=== PATIENT | female | born 1975 | race Caucasian/White ===

== ENCOUNTER 2020-11-24 20:07 | Emergency (ER) | payer OTHER, MEDICARE, MEDICAID, SELFPAY ==
[2020-11-24 20:43] VITALS: BP 119/80; PULSE 88; RESP 17; TEMP 36.4; O2SAT 97; BMI 28.0
--- NOTE | 2020-11-24 21:30 | XR_ITS ---
EXAMINATION: XR LUMBOSACRAL SPINE CLINICAL INFORMATION: History of spinal surgery. Lumbar pain. COMPARISON: None TECHNIQUE: Three views of the lumbosacral spine. FINDINGS: The vertebral bodies and posterior elements are normal. The disc spaces are preserved and the vertebral alignment is normal. The paraspinal soft tissues are normal. XR/XR lumbar spine 2-3V IMPRESSION: Unremarkable examination.
[2020-11-24] MEDS: Acetaminophen 325 MG TABLET 975 MG PO (21:45)
[2020-11-24] MEDS: oxyCODONE HCl Immed Release 5 MG TABLET 2.5 MG PO (21:46)
[2020-11-24] MEDS: Cyclobenzaprine HCl 5 MG TABLET PO (21:46)
[2020-11-24] MEDS: Ketorolac Tromethamine 30 MG/ML VIAL IM (21:47)
[2020-11-24 21:54] VITALS: BP 110/72; PULSE 65; RESP 16; O2SAT 99
--- NOTE | 2020-11-24 22:01 | ED.BACK ---
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 She had immediate pain more so in the right that radiates down to her right buttock. It is painful to walk. She denies numbness, tingling, urinary or fecal incontinence. She denies urinary symptoms. She took ibuprofen at noon without improvement. MD elicited complaint: back pain Pertinent past history: prior back pain Onset (ago): hour(s) (11) Timing: constant Severity: severe Similar Symptoms Previously: Yes Quality: sharp and aching Location: lumbar spine Exacerbating factors: movement and walking Relieving factors: immobilization Context: bending Associated symptoms: denies other symptoms Treatments prior to arrival: NSAIDS Work related injury: No Related Data Previous Rx's Medication Instructions Recorded cyclobenzaprine 5 mg PO TID PRN #14 tab 11/24/20 ibuprofen 600 mg PO Q8H PRN #20 tab 11/24/20 lidocaine [Lidoderm] 1 patch TOPICAL DAILY #15 ea 11/24/20 oxycodone 2.5 mg PO Q8H PRN #5 tab 11/24/20 Allergies Allergy/AdvReac Type Severity Reaction Status Date / Time Iodinated Contrast Media Allergy Severe ANAPHYLAXIS Verified 11/24/20 20:42 [IV CONTRAST] metoclopramide [From REGLAN] Allergy Mild RASH Verified 11/24/20 20:42 Review of Systems Review of Systems: Constitutional: No Fever, No Chills Cardiovascular: No Chest Pain, No SOB Respiratory: No Cough, No Sputum Gastrointestinal: No Nausea, No Vomiting, No Diarrhea, No abdominal Pain Genitourinary: No Dysuria, No Urinary Frequency, No Hematuria Musculoskeletal: + joint pain, + Myalgias Skin: No Skin Lesions, No rash Neuro: No Weakness, No Numbness Psych: No Anxiety/Panic, No Depression Heme/Lymph: No Bruising, No Lymphadenopathy PMFSH Past Medical History Attestation statement: The following information was validated with the patient. Social History Social History Smoking Status: Former smoker Use of substances other than those prescribed or required for medical reasons: No Advance Directives: No Advance Directives Information Provided: Yes Physical Exam Vital Signs: Vital Signs: Last Vital Signs Temp 97.5 F 11/24/20 20:43 Pulse 65 11/24/20 21:54 Resp 16 11/24/20 21:54 BP 110/72 11/24/20 21:54 Pulse Ox 99 11/24/20 21:54 Body Mass Index 28.0 Appearance: Alert. Oriented X3. No acute distress. HEENT: normal inspection CVS: Normal heart rate and rhythm. Pulses normal. Respiratory: No respiratory distress. Skin: Skin warm and dry. Normal skin color. Normal skin turgor. No rashes. Back: longitudinal well, healed surgical scar consistent with prior back surgery, right middle lumbar soft tissue tenderness and spasm, no spinal tenderness. +straight leg raise test on the right. normal DTR's. Extremities: atraumatic, no edema Neuro: Oriented X 3. No motor deficit. No sensory deficit. Walks with slow but steady gait. Slow to sit up due to pain Course Course Course Narrative: 45 y/o female with LBP that occurred while bending down today. No red flag symptoms of LBP. Appears uncomfortable on exam. Will get XR given prior surgery. She report she is very sensitive to mediations and does not like to take narcotics, willing to take low dose oxycodone now. Will also give Toradol and reassess. Reevaluation(s) Reevaluation #1: XR lumbar spine is unremarkable. Pain is improved with medications. She is stable for discharge with treatment for acute on chronic with NSAID, muscle relaxer and low dose oxycodone (short course). She will follow up with her doctor tomorrow. Discharge Plan Discharge Clinical Impression: Strain of lumbar region Qualifiers: Encounter type: initial encounter Qualified Code(s): S39.012A - Strain of muscle, fascia and tendon of lower back, initial encounter Patient Disposition: Home, Self-Care Instructions: Low Back Strain (ED), Acute Low Back Pain (ED), Lower Back Exercises (ED) Additional Instructions: Your x-ray today was normal. No bending, lifting or twisting. Use ice several times per day for 20 minutes at a time for the next 48 hours and then change to heat. Take medications as prescribed to help with pain and discomfort. Follow up with your Primary Care Doctor this week. If your pain worsens, if you develop new numbness, tingling, weakness, loss of function or incontinence call 911 or come back to the ER right away for evaluation. Prescriptions: New lidocaine [Lidoderm] 5 % adhesive patch,medicated 1 patch topical DAILY Qty: 15 RF: 0 ibuprofen 600 mg tablet 600 mg PO Q8H PRN (Reason: pain) Qty: 20 RF: 0 cyclobenzaprine 5 mg tablet 5 mg PO TID PRN (Reason: muscle spasm) Qty: 14 RF: 0 oxycodone 5 mg tablet 2.5 mg PO Q8H PRN (Reason: pain) Qty: 5 RF: 0
== END 2020-11-24 22:44 | disposition home or self-care (01) ==
PROVIDERS: Emergency Provider Emergency Medicine; PCP Internal Medicine
DX: S39.012A Strain of muscle, fascia and tendon of lower back, initial encounter (principal); X50.1XXA Overexertion from prolonged static or awkward postures, initial encounter; Y93.E2 Activity, laundry; Y92.013 Bedroom of single-family (private) house as the place of occurrence of the external cause; Y99.9 Unspecified external cause status
CPT/HCPCS: 72100; 96372; 99284; J1885

== ENCOUNTER 2021-01-24 09:07 | Emergency (ER) | payer OTHER, SELFPAY ==
[2021-01-24 09:11] VITALS: BP 126/67; PULSE 66; RESP 18; TEMP 37.1; O2SAT 99; BMI 27.7
--- NOTE | 2021-01-24 09:45 | ED_ITS ---
HPI - General Adult General Chief complaint: General Medical Stated complaint: MEDICATION Time Seen by Provider: 01/24/21 09:45 History of Present Illness HPI narrative: Patient complains of needing med refill for Paxil as she ran out and is starting to feel anxious, she takes the Paxil for PTSD and has been taking it for years She denies any acute illness she is not having chest pain she has had no fever chills she is not suicidal, she is not hearing voices and requests 1 dose here i n tomorrow Monday [facility] Related Data Previous Rx's Medication Instructions Recorded cyclobenzaprine 5 mg PO TID PRN #14 tab 11/24/20 ibuprofen 600 mg PO Q8H PRN #20 tab 11/24/20 lidocaine [Lidoderm] 1 patch TOPICAL DAILY #15 ea 11/24/20 oxycodone 2.5 mg PO Q8H PRN #5 tab 11/24/20 paroxetine HCl 20 mg PO DAILY #5 tab 01/24/21 Allergies Allergy/AdvReac Type Severity Reaction Status Date / Time Iodinated Contrast Media Allergy Severe ANAPHYLAXIS Verified 01/24/21 09:15 [IV CONTRAST] metoclopramide [From REGLAN] Allergy Mild RASH Verified 01/24/21 09:15 Review of Systems Review of Systems: Here for med refill There is no fever no chills no dizziness no weakness no chest pain no shortness of breath no abdominal pain no rash [facility] Past Medical History Attestation statement: The following information was validated with the patient. [facility] Narrative: PTSD Source: nursing notes reviewed Social History Social History Smoking Status: Former smoker Advance Directives: No Advance Directives Information Provided: No Physical Exam Vital Signs: Vital Signs: Last Vital Signs Temp 98.7 F 01/24/21 09:11 Pulse 66 01/24/21 09:11 Resp 18 01/24/21 09:11 BP 126/67 01/24/21 09:11 Pulse Ox 99 01/24/21 09:11 Body Mass Index 27.7 General appearance is no acute distress, and cooperative and O x3 The head is normocephalic atraumatic Neck is supple Respiratory no distress Abdomen is soft nontender Extremities full range of motion x4 Skin no rash Neuro gait and balance are normal and verbal interaction shows normal speech and normal comprehension, no focal motor or sensory deficits Course Course Course Narrative: Patient is given a Paxil 20 mg here and says she can easily re fill [facility] Discharge Plan Discharge Clinical Impression: Medication refill Additional Instructions: We gave you a 1 time dose of her Paxil and a script for 4 extra days in case you have any trouble getting a refill from the [facility] You can return any time for any problems or concerns Prescriptions: New paroxetine HCl 20 mg tablet 20 mg PO DAILY Qty: 5 RF: 0 No Action lidocaine [Lidoderm] 5 % adhesive patch,medicated 1 patch topical DAILY Qty: 15 RF: 0 ibuprofen 600 mg tablet 600 mg PO Q8H PRN (Reason: pain) Qty: 20 RF: 0 cyclobenzaprine 5 mg tablet 5 mg PO TID PRN (Reason: muscle spasm) Qty: 14 RF: 0 oxycodone 5 mg tablet 2.5 mg PO Q8H PRN (Reason: pain) Qty: 5 RF: 0
[2021-01-24] MEDS: PARoxetine HCL 20 MG TABLET PO (10:02)
== END 2021-01-24 10:05 | disposition home or self-care (01) ==
PROVIDERS: Emergency Provider Emergency Medicine; PCP Internal Medicine
DX: F43.10 Post-traumatic stress disorder, unspecified (principal); Z76.0 Encounter for issue of repeat prescription; Z87.891 Personal history of nicotine dependence; Z79.899 Other long term (current) drug therapy
CPT/HCPCS: 99283

== ENCOUNTER 2021-09-11 21:08 | Emergency (ER) | payer OTHER, SELFPAY | END 2021-09-11 23:30 | disposition left against medical advice (07) | PROVIDERS: Emergency Provider Emergency Medicine; PCP Internal Medicine | DX: U07.1 COVID-19 (principal); R51.9 Headache, unspecified ==

== ENCOUNTER 2021-09-12 11:04 | Emergency (ER) | payer OTHER, SELFPAY ==
--- NOTE | ~2021-09-12 | CT_ITS ---
EXAMINATION: CT HEAD WITHOUT CONTRAST CLINICAL INFORMATION: Headache COMPARISON: None TECHNIQUE: Contiguous axial imaging was performed from the skull base to vertex without intravenous administration of contrast. This CT examination was performed using dose optimization techniques as appropriate, variously including the following: *Automated exposure control *Adjustment of mA and/or kV according to patient size (this includes techniques or standardized protocols for targeted exams where dose is matched to indication/reason for exam; i.e. extremities or head) *Use of iterative reconstruction technique DLP: 665 mGy-cm FINDINGS: There is no evidence of acute intracranial hemorrhage or territorial infarction. No abnormal mass effect or midline shift is seen. [place]iz[place] to white matter differentiation is well preserved. No extra-axial fluid collections are identified. The ventricles are normal in size. There is no abnormal attenuation within the brain parenchyma. No acute osseous abnormality. Partial opacification of the ethmoid and sphenoid sinuses. The mastoid air cells and remainder of the visualized portions of the paranasal sinuses are well aerated. CT/CT head/brain wo IV con IMPRESSION: No CT evidence of acute intracranial hemorrhage or territorial infarction. Ethmoid and sphenoid sinus disease.
[2021-09-12 11:51] VITALS: BP 122/75; PULSE 105; RESP 18; TEMP 36.7; O2SAT 99; BMI 28.8
--- NOTE | 2021-09-12 12:17 | ED.HA ---
HPI - Headache General Chief Complaint: Headache Stated Complaint: Covid + Time Seen by Provider: 09/12/21 12:16 Source: patient Mode of arrival: ambulatory Limitations: no limitations History of Present Illness HPI Narrative: 46-year-old female with a history of PTSD, anxiety, status post lumbar back surgery several years ago, facet joint injections with chronic back pain, diagnosis of COVID-19 on September 03 who presents to the ER with ongoing headaches since her COVID-19 diagnosis. She reports headaches yesterday were severe will get on the left side of her head mostly frontal and orbital. Throbbing type pain that does not improve with Motrin. She denies any photosensitivity or light sensitivity. She reports a history of a traumatic subarachnoid hemorrhage back in 2002 when she was in the . She denies any numbness, weakness, tingling. She states from a COVID perspective her overall symptoms are improving except for the headache and a dry hacking cough. She is not short of breath or having chest pain. Her muscle aches have gone away. She has some intermittent hot flashes but states no fevers. MD elicited complaint: headache Pertinent past history: other (hx SAH) Onset (ago): day(s) () Onset description: gradually Location: left and retro-orbital Severity: severe Quality & Timing: aching, dull and intermittent Exacerbating factors: none Relieving factors: nothing Context: occurred at rest and recent URI Associated symptoms: cough and malaise Treatments prior to arrival: none Related Data Previous Rx's Medication Instructions Recorded cyclobenzaprine 5 mg tablet 5 mg PO TID PRN #14 tab 11/24/20 ibuprofen 600 mg tablet 600 mg PO Q8H PRN #20 tab 11/24/20 lidocaine 5 % topical patch 1 patch TOPICAL DAILY #15 ea 11/24/20 (Lidoderm) oxycodone 5 mg tablet 2.5 mg PO Q8H PRN #5 tab 11/24/20 paroxetine HCl 20 mg tablet 20 mg PO DAILY #5 tab 01/24/21 [id number]-[id number]-[id number] 1 cap PO Q6H PRN #10 cap 09/12/21 50 mg-300 mg-40 mg capsule (Fioricet) Allergies Allergy/AdvReac Type Severity Reaction Status Date / Time Iodinated Contrast Media Allergy Severe ANAPHYLAXIS Verified 09/12/21 11:50 [IV CONTRAST] metoclopramide [From REGLAN] Allergy Mild RASH Verified 09/12/21 11:50 Review of Systems Review of Systems: Constitutional: No Fever, + Chills ENT/Mouth: No sore throat, No Rhinorrhea, No Swallowing Difficulty Eyes: No Eye Pain, No Swelling, No Redness Cardiovascular: No Chest Pain, No SOB, No Orthopnea, No Edema Respiratory: + Cough, No Sputum, No Wheezing, No dyspnea Gastrointestinal: No Nausea, No Vomiting, No Diarrhea, No abdominal Pain Genitourinary: No Dysuria, No Urinary Frequency, No Hematuria Musculoskeletal: No joint pain, No Myalgias Skin: No Skin Lesions, No rash Neuro: No Weakness, No Numbness, + Dizziness, + Headache Psych: No Anxiety/Panic, No Depression Heme/Lymph: No Bruising, No Lymphadenopathy Endocrine: No Polyuria, No Polydipsia [facility] Past Medical History Medical History (Updated 09/12/21 @ 13:44 by RUSH Robert) Subarachnoid bleed Social History Social History Advance Directives: No Patient : No Physical Exam Vital Signs: Vital Signs: Last Vital Signs Temp 98.0 F 09/12/21 11:51 Pulse 105 H 09/12/21 11:51 Resp 18 09/12/21 11:51 BP 122/75 09/12/21 11:51 Pulse Ox 99 09/12/21 11:51 Body Mass Index 28.8 Appearance: Alert. Oriented X3. No acute distress. Eyes: Pupils equal, round and reactive to light. EOMI, no nystagmus ENT: Pharynx normal. Neck: Normal inspection. Neck supple. CVS: Normal heart rate and rhythm. Pulses normal. Respiratory: No respiratory distress. Breath sounds normal. Dry hacking cough. Abdomen: Soft and nontender. +BS x4 Skin: Skin warm and dry. Normal skin color. Normal skin turgor. No rashes. Extremities: No lower extremity edema. Neuro: Oriented X 3. No motor deficit. No sensory deficit. Course Course Course Narrative: 46 y/o female with history of PTSD, anxiety, traumatic SAH 2002, chronic back pain and recent COVID-19 diagnosis on 09/03 presents to the ER with ongoing headaches since she was diagnosed. Worse yesterday. Dizziness all along the last 10 days but no other focal neurological complaints. Exam is benign. Will get CT head and treat with IVF and Fiorcet for now. Reevaluation(s) Reevaluation #1: headache slightly improved but persist. Will give a dose of IV Toradol for additional pain control. Reevaluation #2: CT of the head was unremarkable. Her headache is improved. She is stable for discharge home, will give a trial of p.o. Fioricet. Her headaches will most likely resolve once she is completely recovered from COVID-19. Critical Care Time Critical Care Time Critical Care Time: No Discharge Plan Discharge Clinical Impression: COVID-19 Headache Qualifiers: Headache type: other headache syndrome Qualified Code(s): G44.89 - Other headache syndrome Patient Disposition: Home, Self-Care Instructions: Acute Headache (ED) Additional Instructions: Your head CT scan was unremarkable. Your headache is most likely related to COVID-19 infection. Recommend rest, drinking plenty of fluids and staying hydrated. Continue Motrin 600 mg every 6-8 hours as needed. Recommend taking the prescribed medication as needed for headache. Follow-up with your doctor this week If you develop new or worsening symptoms call 911 or come back to the ER for further evaluation. Prescriptions: New [id number]-[id number] [Fioricet] 50-300-40 mg capsule 1 cap PO Q6H PRN (Reason: pain) Qty: 10 RF: 0 No Action paroxetine HCl 20 mg tablet 20 mg PO DAILY Qty: 5 RF: 0 lidocaine [Lidoderm] 5 % adhesive patch,medicated 1 patch topical DAILY Qty: 15 RF: 0 ibuprofen 600 mg tablet 600 mg PO Q8H PRN (Reason: pain) Qty: 20 RF: 0 cyclobenzaprine 5 mg tablet 5 mg PO TID PRN (Reason: muscle spasm) Qty: 14 RF: 0 oxycodone 5 mg tablet 2.5 mg PO Q8H PRN (Reason: pain) Qty: 5 RF: 0 Referrals: Damaso Dick MD [Primary Care Provider] - 3 days
[2021-09-12] MEDS: Butalb/Acetamin/Caff 50/325/40 TABLET 1 TAB PO (12:24)
[2021-09-12] MEDS: 0.9 % Sodium Chloride 1,000 ML 999 ML IVCONT (12:30)
--- NOTE | 2021-09-12 12:47 | PC.NURSE ---
medicated for [place], alert, speech clear, skin wpd, nad , aware of care plan
[2021-09-12] MEDS: Ketorolac Tromethamine 15 MG/ML VIAL 30 MG IVPUSH (14:39)
== END 2021-09-12 14:48 | disposition home or self-care (01) ==
PROVIDERS: Emergency Provider Emergency Medicine Emergency Medical Services; PCP Internal Medicine
DX: U07.1 COVID-19 (principal); G44.89 Other headache syndrome; F43.10 Post-traumatic stress disorder, unspecified; R05.9 Cough, unspecified; Z79.899 Other long term (current) drug therapy
CPT/HCPCS: 70450; 96361; 96374; 99283; 99284; J1885